=== PATIENT | female | born 1930 | race Caucasian/White ===

== ENCOUNTER 2016-05-05 15:41 | Emergency (ER) | payer MEDICARE, OTHER ==
[~2016-05-05 15:41] MED LIST: AMARYL2 M1 PO; ASPIRIN EC81 MG PO; CALCIUM CITRAT1 EA18 PO; DULOXETINE HCL60 M1 PO; ESTRACE42.5 G1 VG; JANUMET 50-5001 EACH PO; MACRODANTIN50 M2 PO; METHYLPHENIDATE10 M4 PO; MYRBETRIQ50 M1 PO; OMEPRAZOLE20 M3 PO; SERTRALINE HCL100 M5 PO; SYNTHROID50 MC1 PO; TESSALON PERLE100 M1 PO; TRIMETHOPR100 MG/TAB PO; VALSARTAN-HCTZ1 EA10 PO; ZITHROMAX250 M1 PO
[2016-05-05] MEDS ORDERED: SYNTHROID25 MC1 PO (15:47)
[2016-05-05] MEDS ORDERED: TRESIBA FL100 UNIT/1 SC (15:47)
[2016-05-05] MEDS ORDERED: TRIMETHOPRIM100 M1 PO (15:50)
[2016-05-05 16:06] LABS: URINE APPEARANCE HAZY; URINE BILIRUBIN SMALL (NEG); URINE BLOOD SMALL (NEG); URINE COLOR DARK YELLOW; URINE GLUCOSE (UA) NEGATIVE (NEG); URINE KETONE SMALL (NEG); URINE LEUKOCYTE ESTERASE POSITIVE (NEG); URINE NITRITE NEGATIVE (NEG); URINE PROTEIN SMALL (NEG); URINE SPECIFIC GRAVITY 1.025 (1.003-1.030)
[2016-05-05 16:11] LABS: URINE BACTERIA 1+; URINE MUCUS 1+
[2016-05-05 16:12] LABS: URINE EPITHELIAL CELLS 20-35 /[HPF] (0-10)
[2016-05-05 16:13] LABS: ANION GAP 12 mmol/L (0-20); BLOOD UREA NITROGEN 20 mg/dl (6-24); CALCIUM 8.6 mg/dl (8.5-10.5); CARBON DIOXIDE-VENOUS 32 mmol/L (22-32); CHLORIDE 104 mmol/l (96-110); CREATININE 0.92 mg/dl (0.50-1.10); GLUCOSE 106 mg/dL (70-110); POTASSIUM 3.4 mmol/L (3.7-5.1); SODIUM 145 mmol/L (135-145); eGFR VALUE FOR BLACK 66 mL/Min
[2016-05-05 17:07] LABS: BASO % 0.5 % (0-2); EOS % 2.2 % (0-7); EOSINOPHIL ABSOLUTE COUNT 0.2 tho/cmm (0.0-0.7); HCT-HEMATOCRIT 36.2 % (34.0-49.0); HGB-HEMOGLOBIN 11.5 gm/dl (12.0-15.5); LYMPH % 35.1 % (20-45); LYMPH ABSOLUTE COUNT 3.1 tho/cmm (0.8-4.5); MCH (MEAN CORPUSCULAR HGB) 31.3 pg (28.0-32.0); MCHC MEAN CORPUSCULAR HGB CONC 31.8 % (32.0-36.0); MCV (MEAN CELL VOLUME) 98.6 fl (82.0-96.0); MEAN PLATELET VOLUME 10.7 cmc (9.4-12.4); MONO % 8.5 % (0-12); MONOCYTE ABSOLUTE COUNT 0.8 tho/cmm (0.0-1.2); NEUTROPHIL ABSOLUTE COUNT 4.7 tho/cmm (1.6-8.0); NEUTROPHIL-AUTOMATED 4.7 tho/cmm (1.6-8.0); NEUTROPHILS % 53.7 % (40-80); PLATELET COUNT 233 tho/cmm (150-450); RED BLOOD COUNT 3.67 mil/cmm (4.00-5.20); RED CELL DISTRIBUTION WIDTH 13.9 % (12.4-16.4); WHITE BLOOD COUNT 8.8 tho/cmm (4.0-10.0)
[2016-05-05] MEDS ORDERED: KEFLEX500 M4 PO (17:32)
== END 2016-05-05 18:21 ==
LOC: EDMED 15:41
PROVIDERS: Emergency Medicine
DX: N39.0 Urinary tract infection, site not specified (principal); R53.1 Weakness; I10 Essential (primary) hypertension; E11.9 Type 2 diabetes mellitus without complications; Z79.4 Long term (current) use of insulin; Z79.890 Hormone replacement therapy; Z79.82 Long term (current) use of aspirin; Z79.899 Other long term (current) drug therapy